=== PATIENT | female | born 1965 | race Caucasian/White ===

== ENCOUNTER 2025-01-28 11:09 | Outpatient (AMB) | payer OTHER, SELFPAY ==
--- NOTE | 2025-01-28 11:12 | MHC.OFFVIS ---
Intake Visit Reasons: 6M Allergies ibuprofen Allergy (Unknown, Verified 07/25/22 15:32) Unknown naproxen Allergy (Unknown, Verified 07/25/22 15:32) Unknown HPI Comments Details: 59 yo LH woman with underlying diagnoses of cerebral palsy and scleroderma started having seizures in her 20s. Seizures included a few seconds of staring in space. This is a female presenting with medication management for drooling. She reports taking medication specifically for drooling, known as a ?drooling pill,? three times daily. The patient noted positive effects from the medication, indicating satisfaction with its performance. She was uncertain about the rationale for the specific duration of the prescription, which spans 56 days. The patient?s regular medication regimen also includes folic acid, taken once daily, which she has been compliant with. There is an absence of recent blood tests; although she sees her primary care provider biannually, blood work has not been conducted routinely at those visits. She plans to complete needed blood tests with her primary care provider and will ensure results are communicated to us. She also briefly mentioned discomfort with cold weather, specifically affecting her hands, but did not indicate this as a primary concern needing further evaluation today. [facility] Medical History (Updated 01/28/25 @ 11:21 by Sindy Martinez MD) Edema Thyroid nodule Renovascular hypertension Abnormal CT scan, lung Essential (primary) hypertension Social History (Updated 07/25/22 @ 15:23 by Hilda Santa RN) Alcohol intake: never Patient Tobacco Use Status: Never used Tobacco e-Cigarette/Vaping Use: Never Used Review of Systems Narrative - Neurological: Reports drooling (hypersalivation) management with medication. - Musculoskeletal: Reports hands getting cold in winter. - Hematologic: Denies recent blood tests. Physical Exam Neuro Other: Mental Status: Alert and oriented to person, place, and time. Normal attention. Normal spontaneous speech, fluency, and comprehension. Cranial Nerves: CN II: Visual calhoun full to confrontation, visual acuity intact. CN III, IV, : Pupils equal, round, reactive to light and accommodation. Extraocular movements are normal. CN V: Facial sensation is normal. CN VII: Facial movements symmetrical. CN VIII: Hearing intact to bedside conversation is normal. CN IX, X: Palate elevates symmetrically. CN XI: Shoulder shrug and head turn symmetrical. CN XII: Tongue midline without atrophy or fasciculations. Extrapyramidal: Full facial expressions and blinking. No rigidity. Movements are appropriate with no tremor or abnormality. Speech: Normal; no dysarthria or tremor. Assessment & Plan Assessment & Plan (1) Seizure disorder: Comment: NCV/EMG LLE at off in July 2020: Chronic right lower lumbar radiculopathy. EEG at off in July 2020: L FT sharps. Code(s): G40.909 - Epilepsy, unspecified, not intractable, without status epilepticus Category: Medical (2) Chronic static encephalopathy: Code(s): G93.49 - Other encephalopathy Category: Medical Plan Impression: 1. 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 Scleroderma 3. Complex partial seizure disorder 4. Excessive drooling Recommendations 1. Phenytoin sodium 100 mg, 3 a day 2. Folic acid 1 mg a day 3. Liver enzyme test 4. Glycopyrrolate 1 mg twice a day for drooling Orders: Orders Liver Panel Today G40.909 - Epilepsy, unspecified, not intractable, without status epilepticus Medications: New folic acid 1 mg PO DAILY 90 tabs 1RF Refilled glycopyrrolate 1 mg PO BID-TID PRN 60 tabs 5RF secretions 56 days phenytoin sodium extended 100 mg PO TID 270 caps 1RF Coding Level of Care Code Est Pt Level 4 (40307) Diagnoses Seizure disorder G40.909 Chronic static encephalopathy G93.49
--- OUTSIDE RECORDS SUMMARY | 2025-01-28 13:27 | XMS_ITS ---
Author Name [facility] Organization Unknown Care Team Organization Name Specialty Phone Email Start Date End Da te [facility] DAVONTE PERALTA Primary Care 05/31/2022 11/12/2023 [facility] Termed, PROVIDER Primary Care 01/31/202210/24
--- OUTSIDE RECORDS SUMMARY | 2025-01-28 13:27 | XMS_ITS | Clinical Summary ---
Author Organization [facility] Address [address] [place] [address] Care Team Providers Care Hand Model Name Role Phone Unavailable Primary Care Provider Unavailabl e Allergies Active Allergy Reactions Criticality Noted Date Comments Ibuprofen Hives 07/18/2021 Medications Medication Sig Dispensed Refills Start Date End Date Status albuterol 108 (90 Base) MCG/ACT inhaler Inhale 2 puffs into the lungs continuous prn. 0 06/02/2019 Active amLODIPine (NORVASC) tablet 5 mg Take 1 tablet (5 mg total) by mouth 2 (two) times a day. 0 04/07/2021 Active Biotin 1000 MCG tablet Take by mouth daily. 0 05/25/2021 Active cloNIDine (CATAPRES-TTS) 0.1 MG/24HR PTWK Place 1 patch onto the skin once a week. 0 04/07/2021 Active cyanocobalamin 1000 MCG tablet Take 1 tablet (1,000 mcg total) by mouth daily. 0 02/22/2021 Active ferrous sulfate 325 (65 FE) MG tablet Take 1 tablet (325 mg total) by mouth daily. 0 05/31/2021 Active folic acid (FOLVITE) tablet 1 mg Take 1 tablet (1 mg total) by mouth. 0 Active gabapentin (NEURONTIN) 300 MG capsule Take 1 capsule (300 mg total) by mouth. 0 01/13/2019 Active losartan (COZAAR) 100 MG tablet Take 1 tablet (100 mg total) by mouth daily. 0 04/07/2021 Active montelukast (SINGULAIR) 10 MG tablet Take 1 tablet (10 mg total) by mouth. 0 Active mycophenolate (CELLCEPT) 500 MG tablet Take 2 tablets (1,000 mg total) by mouth 2 (two) times a day. 0 10/18/2020 Active Nutritional Supplements (Boost High Protein) LIQD Take by mouth. 0 06/06/2021 Ac tive pantoprazole (PROTONIX) 40 MG tablet Take 1 tablet (40 mg total) by mouth 2 (two) times a day. 0 05/12/2021 Active phenytoin (DILANTIN) 100 MG ER capsule Take 1 capsule (100 mg total) by mouth 3 (three) times a day. 0 07/14/2021 Active spironolactone-hydro chlorothiazide (ALDACTAZIDE) 25-25 MG per tablet Take 1 tablet by mouth daily. 0 04/07/2021 Active valsartan (DIOVAN) tablet 160 mg Take 1 tablet (160 mg total) by mouth daily. 0 06/13/2021 Active LORazepam (ATIVAN) 1 MG tablet Take 1 tablet (1 mg total) by mouth every 6 (six) hours as needed. For mri 4 tablet 0 05/31/2022 Active ergocalciferol (VITAMIN D2) capsule 86475 units TAKE 1 CAPSULE BY MOUTH EVERY WEEK. 4 capsule 0 01/10/2024 Active Active Problems No known active problems Family History Medical History Relation Name Comments Parkinsonism Maternal Grandfather Hypertension Mother Multiple sclerosis Neg Hx Relation Name Status Comments Maternal Grandfather Mother Social History Tobacco Use Types Packs/Day Years Used Date Smoking Tobacco: Never Smokeless Tobacco: Never Tobacco Cessation:Counseling Given: Not Answered Alcohol Use Standard Drinks/Week Comments Never 0 (1 standard drink = 0.6 oz pur e alcohol) Sex and Gender Information Value Date Recorded Sex Assigned at Female 01/15/2023 10:47 AM EDT Gender Identity Not on file Sexual Orientation Not on file Job Start Date Occupation Industry Not on file Not on file Not on file Last Filed Vital Signs Vital Sign Reading Time Taken Comments Blood Pressure 116/79 07/25/2022 11:06 AM EDT Pulse 101 07/25/2022 11:06 AM EDT Temperature 36.6 C (97.8 F) 07/25/2022 11:06 AM EDT Respiratory Rate 16 07/25/2022 11:06 AM EDT Oxygen Saturation 83% 05/10/2022 10:25 AM EST Inhaled Oxygen Concentration - - Weight 54.4 kg (120 lb) 07/25/2022 11:06 AM EDT Height 157.5 cm (5' 2 ) 07/25/2022 11:06 AM EDT Body Mass Index 21.95 07/25/2022 11:06 AM EDT Plan of Treatment Health Maintenance Due Date Last Done Comments Hepatitis B Vaccines (1 of 3 - 3-dose series) 1965 Hepatitis C Screening 1965 COVID-19 Vaccine (#1) 11/15/1972 Pneumococcal Vaccine (1 of 2 - PCV) 11/15/1973 Depression Screening 1979 Preventative Health Evaluation 11/15/1985 DTap / Tdap / Td (1 - Tdap) 11/15/1986 Shingrix-Zoster Vaccine (1 of 2) 11/15/1986 Cervical Cancer Screening (Pap Smear) 11/15/1988 Colon Cancer Screening (Colonoscopy) 11/15/2012 Breast Cancer Screening (Mammogram) 11/15/2017 Influenza Vaccine (#1) 2024 2, 01/05/2021, 12/29/2019, Additional history exists RSV Ped < 20 months Aged Out No longe r eligible based on patient's age to complete this topic [employer] Personal/Family Self 1965 [address] [place] [address]
--- OUTSIDE RECORDS SUMMARY | 2025-01-28 13:27 | XMS_ITS ---
Author Organization [facility] Care Team Providers Care Room Service Clerk Name Role Phone Dolores Santana Unavailable Unavailable Dallin Valerio Unavailable Unavailable Gina Bucio Unavailable Unavailable Allergies and adverse reactions Code CodeSystem Substance Reaction Severity StartDate Concern Status 5640 RXNORM Ibuprofen Unknown 05/09/[address] NSAIDs Unknown 05/08/2021 active Care Team Name Role Address Phone Organization Dates Dallin Valerio PCP [address], [address], [facility] (Office): [facility] 05/09/2021 - 05/14/2021 Dolores Santana [address] [facility] [address] [place] [address], [id number], [facility] (Office): [facility] 05/09/2021 - 05/14/2021 [facility]ina [facility]io [address] [facility], [address], [facility] (Office): [facility] 05/09/2021 - 05/14/2021 Mental Status Section Date Assessment Total Score Description 05/14/2021 BIMS 15 cognitively int act CAM 0 No delirium ind icated PHQ-9 07 mild depression 05/10/2021 BIMS 15 cognitively int act CAM 0 No delirium ind icated PHQ-9 07 mild depression Insurance Providers Problems Problem # Description Date of onset Resolved Date Code CodeSystem Concern Status 1 GASTRO-ESOPHAGEAL REFLUX DISEASE WITHOUT ESOPHAGITIS 05/09/[address] active 2 PNEUMONIA, UNSPECIFIED ORGANISM 05/09/[address] active 3 CEREBRAL PALSY, UNSPECIFIED 05/08/[address] active 4 CONVERSION DISORDER WITH SEIZURES OR CONVULSIONS 05/08/[address] active 5 DIFFICULTY IN WALKING, NOT ELSEWHERE CLASSIFIED 05/08/[address] active 6 DYSPHAGIA, OROPHARYNGEAL PHASE 05/08/[address] active 7 ESSENTIAL (PRIMARY) HYPERTENSION 05/08/[address] active 8 HYPERTENSIVE URGENCY 05/08/[address] active 9 IRON DEFICIENCY ANEMIA, UNSPECIFIED 05/08/[address] active 10 LOCALIZED SCLERODERMA [MORPHEA] 05/08/20212009085791367 SNOMED CT active 11 OTHER SYSTEMIC SCLEROSIS 05/08/[address] active 12 PERICARDIAL EFFUSION (NONINFLAMMATORY) 05/08/[address] active 13 SYNCOPE AND COLLAPSE 05/08/[address] active 14 UNSPECIFIED ASTHMA, UNCOMPLICATED 05/08/[address] active 15 UNSPECIFIED CONVULSIONS 05/08/[address] active 16 UNSPECIFIED FALL, SEQUELA 05/08/[address] active Reason for Referral No Reasons for Referral Entered Social History Social History Observation Description Start Date End Date Code Code System Current Smoking Status Tobacco smoking consumption unknown 371667566 SNOMED CT Sex Assigned At Female 1965 [address] Gender Identity Sexual Orientation Vital Signs Code Code System Vitals Name Values and Units Timing Information 9279-1 LOINC Respiratory Rate Value=18.0 Units=/m in 05/14/2021 77913-6 LOINC O2 % BldC Oximetry Value=96.0 Units= % 05/14/2021 62219-7 LOINC Pain Level Value=0.0 05/14/2021 8462-4 LOINC Blood Pressure-Diastolic Value=74 Un its=mmHg 05/14/2021 8480-6 [facility] Blood Pressure-Systolic Bgaxr=358 Un its=mmHg 05/14/2021 8310-5 [facility] Body Temperature Value=98.1 Units= F 05/14/2021 8867-4 [facility] Heart rate Value=76.0 Units=/min 02355-5 [facility] Weight Gflpg=015.4 Units=Lbs 8302-2 [facility] Height Value=63.0 Units=Inches 05/09/2021
--- OUTSIDE RECORDS SUMMARY | 2025-01-28 13:27 | XMS_ITS ---
HEMETOLOGY METHOD [facility]/03[facility]2024 1[facility] MCH 29.1 27.0 - 32.0 pcg LAB HEMETOLOGY METHOD 11/03/2024 1:[facility] MCHC 30.7(L) 32.0 - 37.0 g/dL LAB HEMETOLOGY METHOD 11/03/2024 1:31 PM [facility] RDW 13.2 11.0 - 15.0 % LAB HEMETOLOGY METHOD 11/03/2024 1:31 PM [facility] Platelets 417(H) 130 - 400 K/mcL LAB HEMETOLOGY METHOD 11/03/2024 1:31 PM [facility] MPV 9.4 7.0 - 11.0 FL LAB HEMETOLOGY METHOD 11/03/2024 1:31 PM [facility] NRBC 0.0 <1.0 % LAB HEMETOLOGY METHOD 11/03/2024 1:31 PM [facility] NRBC Absolute 0.00 <0.10 K/mcL LAB HEMETOLOGY METHOD 11/03/2024 1:31 PM [facility] Neutrophils Relative 81.1 % LAB HEMETOLOGY METHOD 11/03/2024 1:31 PM [facility] Lymphocytes Relative 7.3 % LAB HEMETOLOGY METHOD 11/03/2024 1:31 PM [facility] Monocytes Relative 3.9 % LAB HEMETOLOGY METHOD 11/03/2024 1:31 PM [facility] Eosinophils Relative 6.8 % LAB HEMETOLOGY METHOD 11/03/2024 1:31 PM [facility] Basophils Relative 0.6 % LAB HEMETOLOGY METHOD 11/03/2024 1:31 PM [facility] Immature Granulocytes Relative 0.3 % LAB HEMETOLOGY METHOD 11/03/2024 1:31 PM EDT [facility] Neutrophils Absolute 11.96(H) 1.50 - 7.00 K/mcL LAB HEMETOLOGY METHOD 11/03/2024 1:31 PM EDT [facility] Lymphocytes Absolute 1.07 1.00 - 5.00 K/mcL LAB HEMETOLOGY METHOD 11/03/2024 1:31 PM EDT [facility] Monocytes Absolute 0.58 0.20 - 1.00 K/mcL LAB HEMETOLOGY METHOD 11/03/2024 1:31 PM EDT [facility] Eosinophils Absolute 1.00(H) 0.00 - 0.50 K/mcL LAB HEMETOLOGY METHOD 11/03/2024 1:31 PM EDT [facility] Basophils Absolute 0.09 0.00 - 0.20 K/mcL LAB HEMETOLOGY METHOD 11/03/2024 1:31 PM EDT [facility] Immature Granulocytes Absolute 0.05(H) 0.00 - 0.03 K/mcL LAB HEMETOLOGY METHOD 11/03/2024 1:31 PM EDT [facility] Blood Venous blood specimen / Unknown Venipuncture / Unknown 11/03/2024 12:47 PM EDT 11/03/2024 1:23 PM EDT us Malick Hays MD LAB BLOOD ORDERABLES Final Resul t [facility] [address] [place] [address], * Prothrombin time with INR (11/03/2024 12:47 PM EDT) Protime 12.2 10.6 - 13.9 sec LAB COAGULATION METHOD 11/03/2024 1:46 PM EDT [facility] INR 1.0 LAB COAGULATION METHOD 11/03/2024 1:46 PM EDT [facility] Blood Venous blood specimen / Unknown Venipuncture / Unknown 11/03/2024 12:47 PM EDT 11/03/2024 1:23 PM EDT us Malick Hays MD LAB BLOOD ORDERABLES Final Resul t Performing Organization Address City/[facility]/ZIP Co de Phone Number [facility] [address] [place] [address], [place] [phone] * (ABNORMAL) B-Type Natriuretic Peptide (BNP) (11/03/2024 12:47 PM EDT) BNP 202(H) <=100 pcg/mL LAB CHEMISTRY METHOD 11/03/2024 2:09 PM EDT [facility] Blood Venous blood specimen / Unknown Venipuncture / Unknown 11/03/2024 12:47 PM EDT 11/03/2024 1:23 PM EDT us Malick Hays MD LAB BLOOD ORDERABLES Final Resul t Performing Organization Address [facility] Co de Phone Number [facility] [address] [place] [address], [place] [phone] * Magnesium (11/03/2024 12:47 PM EDT) Magnesium 1.9 1.9 - 2.6 mg/dL LAB CHEMISTRY METHOD 11/03/2024 2:00 PM EDT [facility] Blood Venous blood specimen / Unknown Venipuncture / Unknown 11/03/2024 12:47 PM EDT 11/03/2024 1:23 PM EDT us Malick Hays MD LAB BLOOD ORDERABLES Final Resul t Performing Organization Address City/[facility]/ZIP Co de Phone Number [facility] [address] [place] [address], [place] [phone] * Lipase (11/03/2024 12:47 PM EDT) Lipase 28 13 - 75 unit/L LAB CHEMISTRY METHOD 11/03/2024 2:00 PM EDT [facility] Blood Venous blood specimen / Unknown Venipuncture / Unknown 11/03/2024 12:47 PM EDT 11/03/2024 1:23 PM EDT us Malick Hays MD LAB BLOOD ORDERABLES Final Resul t Performing Organization Address [facility]/ZIP Co de Phone Number [facility] [address] [place] [address], [place] [phone] * Lactate (11/03/2024 12:47 PM EDT) Pathologist [facility] Lactate 0.8 0.4 - 2.0 mmol/L LAB CHEMISTRY METHOD 11/03/2024 2:10 PM EDT [facility] Blood Venous blood specimen / Unknown Venipuncture / Unknown 11/03/2024 12:47 PM EDT 11/03/2024 1:25 PM EDT us Malick Hays MD LAB BLOOD ORDERABLES Final Resul t Performing Organization Address [facility]/ZIP Co de Phone Number [facility] [address] [place] [address], [place] [phone] * (ABNORMAL) Comprehensive Metabolic Panel (CMP) (11/03/2024 12:47 PM EDT) Pathologist [facility] Sodium 142 133 - 145 mmol/L LAB CHEMISTRY METHOD 11/03/2024 2:01 PM EDT [facility] Potassium 3.8 3.5 - 5.5 mmol/L LAB CHEMISTRY METHOD 11/03/2024 2:01 PM EDT [facility] Chloride 113(H) 96 - 110 mmol/L LAB CHEMISTRY METHOD 11/03/2024 2:01 PM EDT [facility] CO2 25 21 - 32 mmol/L LAB CHEMISTRY METHOD 11/03/2024 2:01 PM [facility] Anion Gap 4 3 - 11 LAB CHEMISTRY METHOD 11/03/2024 2:01 PM [facility] Glucose 100 70 - 100 mg/dL LAB CHEMISTRY METHOD 11/03/2024 2:01 PM [facility] BUN 21 5 - 25 mg/dL LAB CHEMISTRY METHOD 11/03/2024 2:01 PM [facility] Creatinine 0.71 0.50 - 1.10 mg/dL LAB CHEMISTRY METHOD 11/03/2024 2:01 PM [facility] eGFR 100 >=60 mL/min/1. 73m2 LAB CHEMISTRY METHOD 11/03/2024 2:01 PM [facility] Comment:Calculation based on the Chronic Kidney Disease Epidemiology Collaboration (CKD-EPI) equation refit without adjustment for race. BUN/Creatinine Ratio 29.6 LAB CHEMISTRY METHOD 11/03/2024 2:01 PM [facility] Calcium 8.5 8.5 - 10.5 mg/dL LAB CHEMISTRY METHOD 11/03/2024 2:01 PM [facility] AST (SGOT) 15 10 - 42 unit/L LAB CHEMISTRY METHOD 11/03/2024 2:01 PM [facility] ALT (SGPT) 7(L) 10 - 60 unit/L LAB CHEMISTRY METHOD 11/03/2024 2:01 PM [facility] Alkaline Phosphatase 239(H) 42 - 121 unit/L LAB CHEMISTRY METHOD 11/03/2024 2:01 PM [facility] Total Protein 6.0 6.0 - 8.0 g/dL LAB CHEMISTRY METHOD 11/03/2024 2:01 PM [facility] Albumin 2.5(L) 3.2 - 5.0 g/dL LAB CHEMISTRY METHOD 11/03/2024 2:01 PM EDT [facility] Total Bilirubin 0.2 0.0 - 1.4 mg/dL LAB CHEMISTRY METHOD 11/03/2024 2:01 PM EDT [facility] Blood Venous blood specimen / Unknown Venipuncture / Unknown 11/03/2024 12:47 PM EDT 11/03/2024 1:23 PM EDT us Malick Hays MD LAB BLOOD ORDERABLES Final Resul t Performing Organization Address City/[facility]/ZIP Co de Phone Number [facility] [address] [place] [address], [place] [phone] * POCT Glucose, blood (11/03/2024 12:22 PM EDT) Glucose POCT 96 70 - 100 mg/dL 11/03/2024 12:23 PM EDT [facility] Blood Capillary blood specimen / Unknown 11/03/2024 12:22 PM EDT 11/03/2024 12:24 PM EDT us Malick Hays MD LAB POINT OF CARE TE ST DOCKED DEVICE UNSOLICITED RESULTS Final Result Performing Organization Address [facility]/ZIP Co de Phone Number [facility] [address] [place] [address], [place] [phone] * XR Chest 1 View (11/03/2024 10:45 AM EDT) Anatomical Region Laterality Modality Body Radiographic Didi ging 11/03/2024 10:4 4 AM EDT Impressions 11/03/2024 10:46 AM EDT Impression: Mild congestive heart failure. Telececilia DAWSON ([id number]) -------- FINAL REPORT -------- Dictated By: Veronica Cooley Dictated Date: 11/03/2024 10:44 ET Assigned Physician: Veronica Cooley Reviewed and Electronically Signed By: Veronica Cooley Signed Date: 11/03/2024 10:46 ET Workstation ID: [id number] Transcribed By: Self Edit Transcribed Date: 11/03/2024 10:44 ET Narrative 11/03/2024 10:46 AM EDT History: Weakness. Comparison: 05/30/24, 03/12/24, thoracic CT 09/23/24 Findings: Portable AP upright chest at 10:40 AM. The cardiac silhouette remains moderately enlarged. The pulmonary vessels are engorged. Mild interstitial septal thickening is seen in the right lower lung. No airspace consolidations are seen. No sizable pleural fluid collection is demonstrated. Procedure Note Veronica Cooley MD - 11/03/2024 History: Weakness. Comparison: 05/30/24, 03/12/24, thoracic CT 09/23/24 Findings: Portable AP upright chest at 10:40 AM. The cardiac silhouette remainsmoderately enlarged. The pulmonary vessels are engorged. Mild interstitialseptal thickening is seen in the right lower lung. No airspaceconsolidations are seen. No sizable pleural fluid collection isdemonstrated. IMPRESSION: Impression: Mild congestive heart failure. Telerad PA ([id number]) -------- FINAL REPORT -------- Dictated By: Veronica Cooley Dictated Date: 11/03/2024 10:44 ET Assigned Physician: Veronica Cooley Reviewed and Electronically Signed By: Veronica Cooley Signed Date: 11/03/2024 10:46 ET Workstation ID: [id number] Transcribed By: Self Edit Transcribed Date: 11/03/2024 10:44 ET Malick Hays MD IMG XR PROCEDURES Final Result * (ABNORMAL) Lipid panel (06/07/2023) LDL/HDL Ratio 4 0 - 4 Triglycerides 107 0 - 150 mg/dL Cholesterol 189 0 - 200 mg/dL HDL 43 >=40 mg/dL LDL Cholesterol 125(A) 0 - 100 mg/dL Blood Venous blood specimen / Unknown Historical Provider LAB BLOOD ORDERABLES Fiona l Result * Depression Screening (02/06/2023) Depression Screening Abstracted Historical Provider HEALTH MAINTENANCE Final Result * Colonoscopy (12/01/2020) Colonoscopy No interpretation , Abstracted Anatomical Region Laterality Modality Other Historical Provider HEALTH MAINTENANCE Final Result * Hepatitis C Screening (05/08/2019) Pathologist [facility] Hepatitis C Screening Abstracted Historical Provider HEALTH MAINTENANCE Final Result from Last 3 Months or Most Recently Relevant to Health Maintenance Insurance [employer] MEDICARE Member Subscriber Plan / Payer (Ef fective 2022-Present) Name:MARCELA TEE Relation to Subscriber:Self Name:Marcela Tee Payer ID:[id number] Group ID:[id number] Type:Not on file Address: [place] [address] [address] [id number] Advance Directives Documents on File Type Date Recorded Patient Sonar Watchstander Expl anation Health Care Decision (hx) 11/08/2020 AD BLANK DIRECTIVE Health Care Decision (hx) 11/08/2020 AD BLANK DIRECTIVE Health Care Decision (hx) 11/08/2020 AD BLANK DIRECTIVE Health Care Decision (hx) 11/08/2020 AD BLANK DIRECTIVE Health Care Decision (hx) 11/08/2020 AD BLANK DIRECTIVE Health Care Decision (hx) 11/08/2020 AD BLANK DIRECTIVE Health Care Decision (hx) 11/08/2020 AD BLANK DIRECTIVE Health Care Decision (hx) 11/08/2020 AD BLANK DIRECTIVE Health Care Decision (hx) 11/08/2020 AD BLANK DIRECTIVE Health Care Decision (hx) 11/08/2020 AD BLANK DIRECTIVE Health Care Decision (hx) 11/08/2020 AD BLANK DIRECTIVE Health Care Decision (hx) 11/08/2020 AD BLANK DIRECTIVE Health Care Decision (hx) 11/08/2020 AD BLANK DIRECTIVE Health Care Decision (hx) 11/08/2020 AD BLANK DIRECTIVE Health Care Decision (hx) 11/08/2020 AD BLANK DIRECTIVE Health Care Decision (hx) 11/08/2020 AD BLANK DIRECTIVE Health Care Decision (hx) 11/08/2020 AD BLANK DIRECTIVE Health Care Decision (hx) 05/27/2019 AD BLANK DIRECTIVE Health Care Decision (hx) 05/27/2019 AD BLANK DIRECTIVE Health Care Decision (hx) 05/27/2019 AD BLANK DIRECTIVE Health Care Decision (hx) 05/27/2019 AD LBANK DIRECTIVE Health Care Decision (hx) 05/27/2019 AD BLANK DIRECTIVE Health Care Decision (hx) 05/27/2019 AD BLANK DIRECTIVE Health Care Decision (hx) 05/27/2019 AD BLAKN DIRECTIVE Health Care Decision (hx) 05/27/2019 AD BLANK DIRECTIVE Health Care Decision (hx) 05/27/2019 AD BLANK DIRECTIVE Health Care Decision (hx) 05/27/2019 AD BLANK DIRECTIVE Health Care Decision (hx) 05/27/2019 AD BLANK DIRECTIVE Health Care Decision (hx) 05/27/2019 AD BLANK DIRECTIVE Health Care Decision (hx) 05/27/2019 AD BLANK DIRECTIVE Health Care Decision (hx) 05/27/2019 AD BLANK DIRECTIVE Health Care Decision (hx) 05/27/2019 AD BLANK DIRECTIVE Health Care Decision (hx) 05/27/2019 AD BLANK DIRECTIVE Health Care Decision (hx) 05/27/2019 AD BLANK DIRECTIVE Health Care Decision (hx) 05/27/2019 AD BLANK DIRECTIVE Health Care Decision (hx) 05/27/2019 AD BLANK DIRECTIVE Health Care Decision (hx) 05/27/2019 AD BLANK DIRECTIVE Health Care Decision (hx) 05/27/2019 AD BLANK DIRECTIVE Health Care Decision (hx) 05/27/2019 AD BLANK DIRECTIVE Health Care Decision (hx) 05/27/2019 AD BLANK DIRECTIVE * No CPR/Do Not Intubate (Latest Code Status on File) Date Activated Date Inactivated Comments 05/30/2024 6:39 PM 06/02/2024 1:16 PM This code sta tus was ascertained in the following way: Code status discussion: discussion with patient To update the patient's code status, place a code status order. Do not modify or discontinue any currently active code status orders. * Full Code - Default Date Activated Date Inactivated Comments 05/27/2024 6:01 AM 05/30/2024 6:39 PM This is order is used when code status has not been discussed with the patient, or code status is otherwise unknown/unconfirmed To update the patient's code status, place a code status order. Do not modify or discontinue any currently active code status orders. * Full Code - Default Date Activated Date Inactivated Comments 03/12/2024 3:13 PM 03/13/2024 4:22 PM This is or chadwick is used when code status has not been discussed with the patient, or code status is otherwise unknown/unconfirmed To update the patient's code status, place a code status order. Do not modify or discontinue any currently active code status orders. * No CPR/Do Not Intubate Date Activated Date Inactivated Comments 03/12/2024 12:12 PM 03/12/2024 3:13 PM This code status was ascertained in the following way: Code status discussion: discussion with patient To update the patient's code status, place a code status order. Do not modify or discontinue any currently active code status orders. Care Teams Spreading Machine Operator Relationship Specialty Start Date End Date Deshaun Guthrie MD [address] [address] PCP - General 09/20/23
== END 2025-01-28 11:20 | disposition home or self-care (01) ==
LOC: HO.HSM 11:09
PROVIDERS: PCP Internal Medicine Rheumatology; Referring Provider Internal Medicine Rheumatology; Visit Provider Psychiatry & Neurology Neurology
DX: G40.909 Epilepsy, unspecified, not intractable, without status epilepticus (principal); G93.49 Other encephalopathy
CPT/HCPCS: 99214

== ENCOUNTER → 2025-01-28 11:09 | Outpatient (BNVA) | payer OTHER, SELFPAY | PROVIDERS: PCP Internal Medicine Rheumatology; Referring Provider Internal Medicine Rheumatology; Visit Provider Psychiatry & Neurology Neurology | DX: G40.909 Epilepsy, unspecified, not intractable, without status epilepticus (principal); G93.49 Other encephalopathy | CPT/HCPCS: 99212 ==